=== PATIENT | female | born 2000 | race African-American/Black ===

== ENCOUNTER 2020-08-11 14:07 | Emergency (ER) | payer OTHER, SELFPAY ==
--- NOTE | ~2020-08-11 | US_ITS ---
EXAMINATION: US OB <=14 wk fetus w TV DATE: 08/11/2020 15:55 INDICATION: Vaginal bleeding during first trimester TECHNIQUE: Real-time pelvic transabdominal and transvaginal ultrasound was performed. COMPARISON: None. FINDINGS: The uterus measures 10.3 x 7.5 x 7.7 cm. An intrauterine fluid collection is identified whi ch is somewhat irregular in shape. No pole is seen. The right ovary measures 3.5 x 2.1 x 2.1 cm . The left ovary measures 4.0 x 2.4 x 2.4 cm. There is normal vascular flow in the ovaries. There is no free fluid in the pelvis. IMPRESSION: 1. Irregular shaped intrauterine fluid collection without identifiable pole. Findings are suspi cious for, but not diagnostic of, failure. If the patient is clinically stable, recommend f ollowup with serial beta-hCG and ultrasound. Reviewed, dictated and finalized at location A. IMPRESSION: 1. Irregular shaped intrauterine fluid collection without identifiable po le. Findings are suspicious for, but not diagnostic of, failure. If t he patient is clinically stable, recommend followup with serial beta-hCG and ul trasound.
[2020-08-11 14:12] VITALS: BP 110/62; PULSE 64; RESP 16; TEMP 36.7; O2SAT 100
--- NOTE | 2020-08-11 14:20 | ED.ABDPAIN ---
HPI - Abdominal Pain General Chief Complaint: Abdominal Pain Stated Complaint: Lower abd pain/+ home preg test on 07/27 Time Seen by Provider: 08/11/20 14:20 Source: patient and family Mode of arrival: ambulatory Limitations: no limitations History of Present Illness HPI narrative: Patient is a 20-year-old female, G3, P1 ,1011, who presents for evaluation of vaginal bleeding. Patient states she has had vaginal bleeding over the past 24 hours. She has had dull, aching, cramping pain that her lower abdomen which radiates to her back. Pain is not worsened on one side compared to the other per patient. No acute onset to pain. She states she had a positive test yesterday, and last menstrual period was the end of May. Patient denies any dysuria. No fever, chills, patient reports nausea without vomiting. Chart reviewed, blood type is A positive from May 06, 2019. Related Data Allergies Allergy/AdvReac Type Severity Reaction Status Date / Time No Known Allergies Allergy Unknown Verified 08/11/20 14:16 Review of Systems Review of Systems: Narrative: CONSTITUTIONAL: Denies fever CARDIOVASCULAR: Denies chest pain, palpitations, or edema. RESPIRATORY: Denies cough or dyspnea. GASTROINTESTINAL: Reports lower abdominal pain, pelvic pain and nausea GENITOURINARY: Denies dysuria or hematuria. Reports vaginal bleeding. SKIN: Denies rash or itching. MUSCULOSKELETAL: Denies back pain, joint pain, or myalgia. NEUROLOGIC: Denies headache, numbness, or weakness. [facility] Past Medical History Medical History (Updated 08/11/20 @ 16:16 by Viky Osuna MD) Miscarriage Social History Social History (Updated 08/11/20 @ 14:33 by Viky Osuna MD) Smoking status: Never smoker Alcohol intake: never Substance use: never Gender identity (if verbalized by the patient): Female Exam Narrative: Exam Narrative: GENERAL: Awake, alert, conversant HEAD: Normocephalic, atraumatic. EYES: PERRLA and EOMI. ENT: Nares clear, no rhinorrhea or epistaxis. Mucous membranes moist. NECK: Supple. CHEST: No respiratory distress, breathing even and non labored HEART: Regular rate, sinus rhythm ABDOMEN:Non distended, mildly tender in the suprapubic area, no guarding, no rigidity, no rebound. No flank tenderness. Pelvic exam: Labia majora and minora normal without lesions. Vagina with some blood present. No cervical motion tenderness. No adnexal tenderness or fullness bilaterally. No purulent discharge present. EXTREMITIES: Normal range of motion. No edema. SKIN: Warm, dry, no rash. NEURO:No focal deficits. Alert and oriented x3 Course Vital Signs Vital signs: Vital Signs Temperature 36.7 C 08/11/20 14:12 Pulse Rate 64 08/11/20 14:12 Respiratory Rate 16 08/11/20 14:12 Blood Pressure 110/62 08/11/20 14:12 Pulse Oximetry 100 08/11/20 14:12 Temperature 36.7 C 08/11/20 14:12 Pulse Rate 64 08/11/20 14:12 Respiratory Rate 16 08/11/20 14:12 Blood Pressure 110/62 08/11/20 14:12 Pulse Oximetry 100 08/11/20 14:12 MDM - Abdominal Pain MDM Narrative Medical decision making narrative: Patient presented for evaluation of vaginal bleeding in early . Patient does not require RhoGam given blood type is A+. Vital signs are stable. No brisk bleeding. No severe anemia. Patient with beta hCG of approximately 2200. Patient will need repeat beta-hCG in the next 48 hours as there is no identifiable on the ultrasound, there is irregular intrauterine findings, no pole identified. No evidence of ectopic at this point. Patient hemodynamically stable, pain mild, I spoke with Dr. Marielle Pandya will arrange repeat beta-hCG in the next 24 to 48 hours for the patient as well as place the order, and patient will be called by her office for follow-up. Differential Diagnosis Differential diagnosis: Likely abdominal pain, calculus of kidney and other (Vaginal bleeding, threatened miscarria
[2020-08-11] MEDS: ONDANSETRON INJ 4 MG/2 ML VIAL IV PUSH (14:46)
[2020-08-11] MEDS: SODIUM CHLORIDE 0.9% IV 1,000 ML 999 ML IV CONT (14:46)
[2020-08-11 14:55] LABS: Basophils Percent Auto 0.4 % (0.2-1.2); Eosinophils Absolute Auto 0.1 K/mm3 (0-0.3); Eosinophils Percent Auto 0.8 % (0-4.4); Hematocrit 42.6 % (37.0-47.0); Hemoglobin 14.6 g/dL (12.0-15.0); Immature Granulocyte Absolute 0.02 K/mm3 (0.00-0.031); Immature Granulocyte Percent A 0.2 % (0-0.5); Lymphocytes Absolute Auto 1.92 K/mm3 (0.9-3.2); Lymphocytes Percent Auto 22.6 % (18.3-44.2); Mean Corpuscular HGB Conc 34.3 g/dl (32-36); Mean Corpuscular Hemoglobin 29.6 pg (26-34); Mean Corpuscular Volume 86.4 fl (80-100); Mean Platelet Volume 10.2 fl (7.4-10.4); Monocytes Absolute Auto 0.6 K/mm3 (0.1-0.6); Monocytes Percent Auto 6.7 % (2.6-8.5); Neutrophils Absolute Auto 5.9 K/mm3 (1.3-6.7); Neutrophils Percent Auto 69.3 % (45.5-73.1); Platelet Count Result 245 k/mm3 (150-375); Red Blood Count 4.93 M/mm3 (4.2-5.4); Red Cell Distribution Width 13.1 % (11.5-14.5); White Blood Count 8.5 K/mm3 (4.5-10.0)
[2020-08-11 15:00] LABS: Add Urine Microscopic? YES; Appearance Urine Cloudy (Clear); Bacteria Urine Trace /hpf; Bilirubin Urine Negative (Negative); Blood Urine 2+ (Negative); Color Urine Yellow (Yellow); Glucose Urine UA Negative (Negative); Ketones Urine Negative (Negative); Leukocyte Esterase Ur Trace LEU/UL (Negative); Mucus Urine Rare /lpf; Nitrate Urine Negative (Negative); Protein Urine Negative (Negative); RBC Urine 0-2 /hpf (0-2); Specific Grav Ur 1.012 (1.001-1.035); Squamous Epithelial Cell Urine Many /hpf (Few); Urobilinogen Urine Negative mg/dL (<2.0); WBC Urine 0-3 /hpf
[2020-08-11 15:05] LABS: Partial Thromboplastin Time 25.8 SECONDS (22.3-36.8); Prothrombin Time 13.1 Seconds (11.1-14.7)
[2020-08-11 15:08] LABS: Alanine Aminotransferase 13 U/L (4-35); Albumin Level 4.4 g/dL (3.5-5.1); Alkaline Phosphatase 46 U/L (38-126); Anion Gap 10 mmol/L (8-16); Aspartate Amino Transferase 28 U/L (14-36); Bilirubin,Total 0.6 mg/dL (0.2-1.3); Blood Urea Nitrogen 5 mg/dL (7-17); Calcium 9.6 mg/dL (8.4-10.2); Carbon Dioxide 23 mmol/L (22-30); Chloride 105 mmol/L (98-107); Estimated CRCL calculation 86 ml/min; Estimated Glomerular Filt Rate > 60; Glucose 100 mg/dL (65-105); Lipase 49 U/L (23-300); Potassium 3.8 mmol/L (3.4-5.0); Sodium 138 mmol/L (137-145)
== END 2020-08-11 16:47 | disposition home or self-care (01) ==
PROVIDERS: Emergency Provider Emergency Medicine
DX: O20.9 Hemorrhage in early pregnancy, unspecified (principal); Z3A.01 Less than 8 weeks gestation of pregnancy
CPT/HCPCS: 36415; 76801; 76817; 80053; 81001; 81025; 83690; 84702; 85025; 85461; 85610; 85730; 87070; 87491; 87591; 87808; 96361; 96365; 96375; 99284; J0131; J2405; J7030

== ENCOUNTER 2020-08-13 14:00 | Outpatient (CLI) | payer OTHER, SELFPAY | END 2020-08-13 14:01 | disposition home or self-care (01) | PROVIDERS: PCP Obstetrics & Gynecology; Visit Provider Obstetrics & Gynecology | DX: O20.0 Threatened abortion (principal) | CPT/HCPCS: 36415; 84702 ==

== ENCOUNTER 2020-08-19 10:49 | Emergency (ER) | payer OTHER, SELFPAY ==
[2020-08-19] VITALS (32 sets, daily range): BP systolic 88–112; BP diastolic 43–73; PULSE 43–108; RESP 16–22; TEMP 35.8; O2SAT 90–100
--- NOTE | ~2020-08-19 | US_ITS ---
EXAMINATION: US OB <=14 wk fetus w TV DATE: 08/19/2020 11:36 INDICATION: Vaginal bleeding with cramping. TECHNIQUE: Real-time transabdominal and transvaginal obstetric ultrasound. FINDINGS: Comparison ultrasound dated 08/11/2020 The uterus measures 10.9 x 5 x 6.7 cm. No viable intrauterine identified. There is a comple x fluid collection in the endometrium at the lower uterine segment. No pole is identified. Right ovary measures 2.6 x 2.7 x 2.4 cm. Left ovary measures 3.5 x 3 x 2 cm. No free fluid in the pel vis. IMPRESSION: 1. No evidence for viable intrauterine . Complex fluid present in the endometrium at the low er uterine segment. Given 2 consecutive abnormal ultrasounds, this is likely a failed with retained products. Ectopic is not entirely excluded, although much less favored. Recommend follow-up with serial quantitative beta-hCG levels and ultrasound as clinically indicated. Reviewed, dictated and finalized at location B. IMPRESSION: 1. No evidence for viable intrauterine . Complex fluid present in the endometrium at the lower uterine segment. Given 2 consecutive abnormal ultrasou nds, this is likely a failed with retained products. Ectopic pregnanc y is not entirely excluded, although much less favored. Recommend follow-up wit h serial quantitative beta-hCG levels and ultrasound as clinically indicated.
[2020-08-19] MEDS: MORPHINE SULFATE (*CRX) 2 MG/ML INJ IV PUSH (11:12)
[2020-08-19] MEDS: SODIUM CHLORIDE 0.9% IV 1,000 ML 999 ML IV CONT (11:12)
--- NOTE | 2020-08-19 11:15 | ED.GENADULT ---
HPI - General Adult General Chief complaint: OB/Uterine Contractions Stated complaint: gestation less than 20 weeks, cramping Time Seen by Provider: 08/19/20 10:55 Source: patient and old records reviewed Mode of arrival: ambulatory Limitations: no limitations History of Present Illness HPI narrative: Patient is a 20-year-old female who presents with continued abdominal pain and is now passing clots with increasing bleeding and pain described as a sharp cramping intermittent pain in the lower abdomen with some radiation to the back patient was seen in the emergency department for this a week ago and was diagnosed with vaginal bleeding in upon review of the chart patient at that time was advised to follow with mr teacher which she did this last Tuesday patient was advised to get repeat beta-hCG which she did patient describes the results as the number was going down and she was told that she was having a miscarriage in her visit in the clinic on Tuesday patient is G2, P1 ultrasound from the in the emergency department showed irregular shaped intrauterine fluid collection without identifiable pole suspicious but not diagnostic of failure Related Data Allergies Allergy/AdvReac Type Severity Reaction Status Date / Time No Known Allergies Allergy Unknown Verified 08/11/20 14:16 Review of Systems Review of Systems: All systems reviewed & are unremarkable except as noted in HPI and below PMFSH Past Medical History Medical History Miscarriage Social History Social History Smoking status: Never smoker Alcohol intake: never Substance use: never Gender identity (if verbalized by the patient): Female Exam Narrative: Exam Narrative: GENERAL: Well-appearing, well-nourished, uncomfortable and in no acute distress. HEAD: Normocephalic, atraumatic. EYES: PERRLA and EOMI. ENT: Nares clear, no rhinorrhea or epistaxis. Mucous membranes moist. NECK: Supple. No adenopathy or masses. CHEST: Clear to auscultation. No respiratory distress. No wheezes rales or rhonchi HEART: Regular rate and rhythm. No murmur heard. Normal peripheral pulses. ABDOMEN: Soft, generalized tenderness worse in the lower quadrants, nondistended EXTREMITIES: Normal range of motion. No edema. SKIN: Warm, dry, no rash. NEURO: No focal deficits. Alert and oriented x3. PSYCH: Normal mood and affect. Discharge Plan Discharge Prescriptions: No Action acetaminophen 500 mg capsule 500 mg PO Q6H PRN (Reason: fever or pain) Qty: 30 RF: 0 metoclopramide HCl [Reglan] 10 mg tablet 10 mg PO Q6H PRN (Reason: nausea and vomiting) Qty: 14 RF: 0
--- NOTE | 2020-08-19 11:17 | PC.NURSE ---
PT TO ULTRASOUND PRIOR TO BEING ABLE TO DRAW BLOOD, WILL ATTEMPT UPON HER RETURN.
--- NOTE | 2020-08-19 11:20 | ED.GENADULT ---
HPI - General Adult General Chief complaint: OB/Uterine Contractions Stated complaint: gestation less than 20 weeks, cramping Time Seen by Provider: 08/19/20 10:55 Source: patient and old records reviewed Mode of arrival: ambulatory Limitations: no limitations History of Present Illness HPI narrative: Patient in the room at this time presenting with increasing vaginal bleeding passing clots this morning with cramping in the abdomen that radiates to the back was seen here on the had evaluation with concern for failed followed up Tuesday with her front desk which is at the [facility] was told that her quant was going down and that she was miscarrying patient this morning started having heavier bleeding with passing of clots and increasing pain took 2 Aleve prior to arrival. Patient is G2, P1. Related Data Allergies Allergy/AdvReac Type Severity Reaction Status Date / Time No Known Allergies Allergy Unknown Verified 08/11/20 14:16 Review of Systems Review of Systems: All systems reviewed & are unremarkable except as noted in HPI and below PMFSH Past Medical History Medical History Miscarriage Social History Social History Smoking status: Never smoker Alcohol intake: never Substance use: never Gender identity (if verbalized by the patient): Female Exam Narrative: Exam Narrative: GENERAL: Well-appearing, well-nourished, uncomfortable and in no acute distress. HEAD: Normocephalic, atraumatic. EYES: PERRLA and EOMI. ENT: Nares clear, no rhinorrhea or epistaxis. Mucous membranes moist. CHEST: Clear to auscultation. No respiratory distress. No wheezes rales or rhonchi HEART: Regular rate and rhythm. No murmur heard. Normal peripheral pulses. ABDOMEN: Soft, tenderness throughout the lower quadrants of the abdomen FEMALE GENITOURINARY: Patient with red blood in the vault with a few clots no tissue EXTREMITIES: Normal range of motion. No edema. SKIN: Warm, dry, no rash. NEURO: No focal deficits. Alert and oriented x3. PSYCH: Normal mood and affect. Course Course Emergency Course: Patient in the room at this time has been evaluated was found to have miscarriage with continued dropping in her hCG and ultrasound consistent with miscarriage discussion was made with the patient's front desk who will follow patient in clinic patient was given fluids and medications with relief and is feeling better at this time patient hemodynamically stable no high risk changes in the blood work or imaging Vital Signs Vital signs: Vital Signs Temperature 96.5 F L 08/19/20 11:14 Pulse Rate 108 H 08/19/20 11:14 Respiratory Rate 22 H 08/19/20 11:14 Blood Pressure 111/66 08/19/20 11:14 Pulse Oximetry 100 08/19/20 11:14 Temperature 96.5 F L 08/19/20 11:14 Pulse Rate 43 L 08/19/20 13:20 Respiratory Rate 16 08/19/20 13:03 Blood Pressure 98/73 L 08/19/20 14:55 Pulse Oximetry 100 08/19/20 14:55 Medical Decision Making MDM Narrative Medical decision making narrative: Patient in the room at this time resting comfortably feeling better with interventions aware of recommendations of her front desk with miscarriage as the diagnosis patient will follow in clinic feeling appropriate for outpatient reevaluation given reasons to return Vital Signs Vital Signs: Vital Signs Temperature 96.5 F L 08/19/20 11:14 Pulse Rate 108 H 08/19/20 11:14 Respiratory Rate 22 H 08/19/20 11:14 Blood Pressure 111/66 08/19/20 11:14 Pulse Oximetry 100 08/19/20 11:14 Temperature 96.5 F L 08/19/20 11:14 Pulse Rate 43 L 08/19/20 13:20 Respiratory Rate 16 08/19/20 13:03 Blood Pressure 98/73 L 08/19/20 14:55 Pulse Oximetry 100 08/19/20 14:55 Lab Data Result diagrams: 08/19/20 15:31 08/19/20 12:19 Labs: Lab Results 08/19/20
[2020-08-19 11:57] LABS: Add Urine Microscopic? YES; Appearance Urine Cloudy (Clear); Bilirubin Urine Negative (Negative); Blood Urine 3+ (Negative); Glucose Urine UA Negative (Negative); Ketones Urine Negative (Negative); Leukocyte Esterase Ur Negative LEU/UL (Negative); Mucus Urine Rare /lpf; Nitrate Urine Negative (Negative); Protein Urine 2+ mg/dL (Negative); RBC Urine >75 /hpf (0-2); Specific Grav Ur 1.016 (1.001-1.035); Urobilinogen Urine Negative mg/dL (<2.0)
[2020-08-19 12:07] LABS: Color Urine Light Red (Yellow)
[2020-08-19] MEDS: MORPHINE SULFATE (*CRX) 4 MG/ML INJ IV PUSH (12:11)
[2020-08-19 12:29] LABS: Basophils Percent Auto 0.2 % (0.2-1.2); Eosinophils Percent Auto 0.1 % (0-4.4); Hematocrit 38.8 % (37.0-47.0); Hemoglobin 13.4 g/dL (12.0-15.0); Immature Granulocyte Absolute 0.05 K/mm3 (0.00-0.031); Immature Granulocyte Percent A 0.4 % (0-0.5); Lymphocytes Absolute Auto 1.07 K/mm3 (0.9-3.2); Lymphocytes Percent Auto 8.1 % (18.3-44.2); Mean Corpuscular HGB Conc 34.5 g/dl (32-36); Mean Corpuscular Hemoglobin 29.8 pg (26-34); Mean Corpuscular Volume 86.2 fl (80-100); Mean Platelet Volume 9.5 fl (7.4-10.4); Monocytes Absolute Auto 0.6 K/mm3 (0.1-0.6); Monocytes Percent Auto 4.4 % (2.6-8.5); Neutrophils Absolute Auto 11.5 K/mm3 (1.3-6.7); Neutrophils Percent Auto 86.8 % (45.5-73.1); Platelet Count Result 222 k/mm3 (150-375); Red Cell Distribution Width 12.9 % (11.5-14.5); White Blood Count 13.3 K/mm3 (4.5-10.0)
[2020-08-19 12:40] LABS: Alanine Aminotransferase 11 U/L (4-35); Albumin Level 4.1 g/dL (3.5-5.1); Alkaline Phosphatase 72 U/L (38-126); Anion Gap 10 mmol/L (8-16); Aspartate Amino Transferase 22 U/L (14-36); Bilirubin,Total 0.3 mg/dL (0.2-1.3); Blood Urea Nitrogen 10 mg/dL (7-17); Calcium 9.2 mg/dL (8.4-10.2); Carbon Dioxide 22 mmol/L (22-30); Chloride 109 mmol/L (98-107); Estimated CRCL calculation 102 ml/min; Estimated Glomerular Filt Rate > 60; Glucose 91 mg/dL (65-105); Potassium 3.9 mmol/L (3.4-5.0); Sodium 141 mmol/L (137-145)
[2020-08-19] MEDS: LACTATED RINGERS 1,000 ML 999 ML IV CONT (15:03)
[2020-08-19] MEDS: KETOROLAC 30 MG/ML VIAL (*BKC) IV PUSH (15:23)
[2020-08-19 15:38] LABS: Hematocrit 37.8 % (37.0-47.0); Hemoglobin 12.9 g/dL (12.0-15.0)
== END 2020-08-19 15:49 | disposition home or self-care (01) ==
PROVIDERS: Emergency Medicine Emergency Medical Services; Emergency Provider Emergency Medicine; PCP Obstetrics & Gynecology
DX: O03.9 Complete or unspecified spontaneous abortion without complication (principal)
CPT/HCPCS: 36415; 76801; 76817; 80053; 81001; 84702; 85014; 85018; 85025; 85461; 87086; 96361; 96365; 96375; 96376; 99284; J0131; J1885; J2270; J7030; J7120

== ENCOUNTER 2020-08-22 10:16 | Outpatient (CLI) | payer OTHER, SELFPAY | END 2020-08-22 10:17 | disposition home or self-care (01) | LOC: ANHLAB 10:19 | PROVIDERS: PCP Obstetrics & Gynecology; Visit Provider Obstetrics & Gynecology | DX: O20.0 Threatened abortion (principal) | CPT/HCPCS: 36415; 84702 ==

== ENCOUNTER 2020-08-29 12:45 | Outpatient (CLI) | payer OTHER, SELFPAY | END 2020-08-29 12:46 | disposition home or self-care (01) | PROVIDERS: PCP Obstetrics & Gynecology; Visit Provider Obstetrics & Gynecology | DX: O03.4 Incomplete spontaneous abortion without complication (principal); Z3A.00 Weeks of gestation of pregnancy not specified | CPT/HCPCS: 36415; 84702 ==

== ENCOUNTER 2022-11-19 12:38 | Emergency (ER) | payer OTHER, SELFPAY ==
--- NOTE | ~2022-11-19 | CT_ITS ---
Noncontrast CT scan of the cervical spine Technique: Multiple contiguous axial [address] images of the cervical spine were obtained and rec onstructed in 2D sagittal and coronal planes on the acquisition scanner. Dose reduction technique was used on this scan by utilizing automated exposure control, adjustment of the mA and/or kV according to patient size. Clinical History: Pain Findings: No fractures or dislocations. Reversal normal cervical lordosis noted. The intervertebral disc spaces are preserved. No prevertebral soft tissue swelling. Impression: No fracture or subluxation of the cervical spine. Reversal of the normal cervical lordosis may be due to patient positioning and/or muscle spasm. Reviewed, dictated and finalized at location . [facility] OF MEDICAL REVIEW Impression: No fracture or subluxation of the cervical spine. Reversal of the normal cervical lordosis may be due to patient positioning and/ or muscle spasm.
[2022-11-19 12:52] VITALS: BP 116/72; PULSE 85; RESP 18; TEMP 36.4; O2SAT 98
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
[2022-11-19] MEDS: ACETAMINOPHEN 325 MG TABLET 650 MG PO (13:25)
[2022-11-19] MEDS: IBUPROFEN 600 MG TABLET PO (13:26)
== END 2022-11-19 14:42 | disposition home or self-care (01) ==
LOC: ANHED 13:59
PROVIDERS: Emergency Provider Emergency Medicine; PCP Obstetrics & Gynecology
DX: S13.4XXA Sprain of ligaments of cervical spine, initial encounter (principal); V43.53XA Car driver injured in collision with pick-up truck in traffic accident, initial encounter; Y92.410 Unspecified street and highway as the place of occurrence of the external cause
CPT/HCPCS: 72125; 99284; A9270

== ENCOUNTER 2023-06-27 18:15 | Emergency (ER) | payer BC, OTHER, SELFPAY ==
--- NOTE | 2023-06-27 18:17 | ED.URI ---
HPI - URI/Sore Throat General Chief Complaint: Upper Respiratory Infection Stated Complaint: Sinus Time Seen by Provider: 06/27/23 18:16 Source: patient Mode of arrival: ambulatory Limitations: no limitations History of Present Illness HPI Narrative: Loy is a 23-year-old female patient presenting to clinic today with complaints of nasal congestion, body aches, chills, low-grade temperature, abdominal discomfort, and headache x3 days. She reports she started feeling ill Lm night after going to a concert. She denies any sore throat. No known exposure to anyone with COVID, flu, or strep. MD elicited complaint: fever, cough, rhinorrhea, nasal congestion and other (Body aches, chills) Related Data Home Medications Medication Instructions Recorded Confirmed No Home Medications 11/19/22 06/27/23 Allergies Allergy/AdvReac Type Severity Reaction Status Date / Time No Known Allergies Allergy Unknown Verified 06/27/23 18:34 Review of Systems Review of Systems: Pertinent positives per HPI. Patient denies any fever, chills, rash, headache, visual changes, dizziness, cough, runny nose, sore throat, shortness of breath, chest pain, palpitations, nausea, vomiting, diarrhea, constipation, abdominal pain, or any urinary issues. [facility] Past Medical History Medical History Miscarriage Social History Social History Smoking status: Never smoker Alcohol intake: never Substance use: never Gender identity (if verbalized by the patient): Female Comments At the time of my signature, I reviewed and agree with the nursing past medical, surgical, social, and family history. There is no relevant family history pertinent to the patient complaint. Exam Narrative: General: Well-developed, well nourished, in no apparent distress Head: Normocephalic, atraumatic Eyes: Pupils equally round and reactive to light bilaterally, EOM intact, sclera and conjunctive clear, no discharge, lids normal Ears: TMs intact and clear, ear canals clear, no drainage, grossly hearing normal. Nose: Nares patent, clear nasal discharge, no inflammation, no sinus tenderness. Mouth: Oral pharynx without lesions or masses, good dentition, MMM. Neck: Supple, trachea midline, no enlargement of anterior or posterior cervical nodes, no thyroid masses or goiter palpable. Cardio: Regular rate and rhythm, s1 and s2 normal, no murmur appreciated. Resp: Clear to auscultation bilaterally, no rhonchi, rales, wheezing or rubs Course Course Emergency Course: Portions of this record may have been created with voice recognition software. Level of Care: Express Care Visit Vital Signs Vital signs: Vital signs reviewed MDM - URI/Sore Throat MDM Narrative Medical decision making narrative: At the time of visit patient is resting comfortably on the exam table. COVID and influenza testing was performed and was negative in the clinic today. I suspect patient has URI/viral syndrome. Supportive measures were discussed with the patient she voiced understanding discharge instructions agrees to treatment plan. Differential Diagnosis Differential diagnosis: Likely upper respiratory infection, otitis media, sinusitis, viral infection, bronchitis, influenza, pharyngitis and other (COVID) Discharge Plan Discharge Clinical Impression: Viral infection Upper respiratory infection Qualifiers: URI type: unspecified URI Qualified Code(s): J06.9 - Acute upper respiratory infection, unspecified Patient Disposition: Home, Self-Care Condition: Stable Instructions: Antibiotic Form, Upper Respiratory Infection (ED), Viral Syndrome (ED) Additional Instructions: COVID and influenza testing was negative in the clinic today. Increase fluids and stay well hydrated Tylenol/motrin for pain/fever Flonase and OTC antihistamines as directed Vicks vap
[2023-06-27 18:39] VITALS: BP 118/73; PULSE 118; RESP 20; TEMP 37.7; O2SAT 100
== END 2023-06-27 19:08 | disposition home or self-care (01) ==
PROVIDERS: Emergency Provider Nurse Practitioner Family; PCP Physician Assistant
DX: B34.9 Viral infection, unspecified (principal); J06.9 Acute upper respiratory infection, unspecified; Z20.822 Contact with and (suspected) exposure to COVID-19
CPT/HCPCS: 87426; 87804; 99213; C9803; G0463